=== PATIENT | female | born 1975 | race Caucasian/White ===

== ENCOUNTER 2018-12-10 17:31 | Emergency (ER) | payer MEDICAID ==
[~2018-12-10] VITALS: Ht 170.2 cm; Wt 87.1 kg
[2018-12-10 17:37] VITALS: BP 123/81
--- NOTE | 2018-12-10 17:40 | NUR ---
VSS AT THIS TIME. [id number]. PT TO WAIT IN ER LOBBY FOR AVAILABLE BED
--- NOTE | 2018-12-10 22:14 | NUR ---
PT AMBULATED TO BED 7.
--- NOTE | 2018-12-10 22:25 | NUR ---
43 Y FEMALE, PRESENTED TO ED, C/O LEFT UPPER TEETH PAIN X3 DAYS, PAIN OF 5/10 THAT RADIATES TO L SIDE OF HEAD AND L SHOULDER. PT STATED "I HAVE AN APPOINTMENT ON THURSDAY TO SEE MY DENTIST" AAOX4, GCS 15, RR EVEN UNLABORED, ED MADE AWARE, WILL CONTINUE TO MONITOR CLOSELY, BED LOCKED IN LOWEST POSITION, SIDERAIL UPX1. PMH- DENIES
[2018-12-10 22:43] VITALS: BP 125/76
--- NOTE | 2018-12-10 22:43 | NUR ---
Patient discharged with v/s stable. Written and verbal after care instructions given and explained. Patient alert, oriented and verbalized understanding of instructions. Ambulatory with steady gait. All questions addressed prior to discharge. ID band removed. Patient advised to follow up with PMD. Rx of AMOXICILLIN 500MG AND NORCO 5-325MG given. Patient educated on indication of medication including possible reaction and side effects. Opportunity to ask questions provided and answered.
== END 2018-12-10 22:43 | disposition home or self-care (01) ==
LOC: MED 17:31
DX: K08.89 Other specified disorders of teeth and supporting structures (principal)
CPT/HCPCS: 81025; 99283